=== PATIENT | female | born 1970 | race Caucasian/White ===

== ENCOUNTER 2023-06-04 12:11 | Outpatient (CLI) | payer BC | END 2023-06-04 12:12 | disposition home or self-care (01) | LOC: SCSRAD 12:11 | PROVIDERS: ATTEND Nurse Practitioner Family | DX: S99.922A Unspecified injury of left foot, initial encounter (principal) ==

== ENCOUNTER 2023-11-12 15:08 | Outpatient (CLI) | payer BC | END 2023-11-12 15:09 | disposition home or self-care (01) | LOC: LABBT 15:08 | PROVIDERS: ATTEND Otolaryngology Plastic Surgery within the Head & Neck | DX: Z01.812 Encounter for preprocedural laboratory examination (principal); J34.2 Deviated nasal septum; J34.3 Hypertrophy of nasal turbinates; J32.0 Chronic maxillary sinusitis; J32.1 Chronic frontal sinusitis; J32.2 Chronic ethmoidal sinusitis | CPT/HCPCS: 85014; 93005; 93010 ==